=== PATIENT | female | born 1960 | race Caucasian/White ===

== ENCOUNTER 2018-05-24 11:14 | Emergency (ER) | payer MEDICARE, OTHER ==
[~2018-05-24] VITALS: Ht 172.7 cm; Wt 154.2 kg
[2018-05-24] MEDS ORDERED: IV NORMAL SALINE 1,000ML 1,000 ML IV ONE ×2 (11:45→12:45)
[2018-05-24] MEDS ORDERED: IOHEXOL 300 MG/ML 75 ML VIAL. IV ONE (12:00)
[2018-05-24] MEDS ORDERED: VANCOMYCIN 2 GM in IV NORMAL SALINE 500ML 500 ML IV ONE (12:00)
[2018-05-24] MEDS ORDERED: PIPERACILLIN/TAZOBACTAM 3.375 GM in IV NORMAL SALINE 50ML 50 ML IV ONE (12:00)
--- NOTE | 2018-05-24 12:06 | ED.ADGEN ---
Past History Past Medical History: Fibromyalgia, Hypertension, Sciatica Past Surgical History: No Surgical History Alcohol Use: None Drug Use: None Adult General Chief Complaint Chief Complaint facial pain HPI HPI 57-year-old female presents the emergency department with right-sided facial pain, swelling and redness started 2 weeks ago. Has slowly worsened. She also admits to blistering around her lips. Over the past few days she has had malaise , fatigue, insomnia and chills. Review of Systems Review of Systems Eyes: Denies change in visual acuity, redness, or eye pain HENT: Denies nasal congestion or sore throat Respiratory: Denies cough or shortness of breath Cardiovascular: No additional information not addressed in HPI GI: Denies abdominal pain, nausea, vomiting, bloody stools or diarrhea : Denies dysuria or hematuria Musculoskeletal: Denies back pain or joint pain Neurologic: Admits to mild headache, denies focal weakness or sensory changes [] Endocrine: Denies polyuria or polydipsia All other systems were reviewed and found to be within normal limits, except as documented in this note. Family History Family History noncontributory Current Medications Current Medications Current Medications Medications (Trade) Dose Ordered Sig/Mel Start Time Stop Time Status Last Admin Dose Admin Fentanyl Citrate (Fentanyl 2ml Vial) 50 mcg 1X ONCE 05/24/18 13:50 05/24/18 13:51 DC 05/24/18 14:05 50 MCG Iohexol (Omnipaque 300 Mg/ml) 75 ml 1X ONCE 05/24/18 12:00 05/24/18 12:01 DC 05/24/18 12:02 75 ML Lactated Ringer's 1,000 ml @ 1,000 mls/hr Q1H 05/24/18 13:00 05/24/18 13:00 1,000 MLS/HR Metronidazole 100 ml @ 100 mls/hr 1X ONCE 05/24/18 12:45 05/24/18 13:44 DC 05/24/18 12:45 100 MLS/HR Piperacillin Sod/ Tazobactam Sod (Zosyn) 3.375 gm STK-MED ONCE 05/24/18 12:08 05/24/18 12:09 DC Piperacillin Sod/ Tazobactam Sod 3.375 gm/Sodium Chloride 50 ml @ 100 mls/hr 1X ONCE 05/24/18 12:00 05/24/18 12:29 DC 05/24/18 12:17 100 MLS/HR Sodium Chloride 1,000 ml @ 1,000 mls/hr 1X ONCE 05/24/18 12:45 05/24/18 13:44 DC Vancomycin HCl 2 gm/Sodium Chloride 500 ml @ 250 mls/hr 1X ONCE 05/24/18 12:00 05/24/18 13:59 DC 05/24/18 12:18 250 MLS/HR Allergies Allergies Allergies Coded Allergies Type Severity Reaction Last Updated Verified No Known Drug Allergies 05/24/18 No Physical Exam Physical Exam GENERAL: Awake, alert, nontoxic, obese HEAD/NECK/EYES: Normocephalic, neck is supple, trachea midline, no JVD, right submandibular and facial cellulitis, indurated in the submandibular region, no fluctuance appreciated, no trismus, tongue not elevated, uvula midline, airway patent, no preseptal involvement, blistering around the mouth ENT Airway patent, mucous membranes moist RESP: Nontachypneic, no respiratory distress, normal breath sounds bilaterally CV: Tachycardic, no murmur ABD/GI: Soft, non-tender, no guarding BACK: Inspection NL EXT: Neurovascularly intact, no deformities SKIN: Warm, dry NEURO: Oriented X3, normal speech, no motor deficits, no sensory deficits, CN II - XII intact PSYCH: Cooperative, appropriate affect Current Patient Data Vital Signs Vital Signs Date Time Temp Pulse Resp B/P (MAP) Pulse Ox O2 Delivery O2 Flow Rate FiO2 05/24/18 14:05 22 94 Room Air 05/24/18 12:58 114 154/99 (117) 05/24/18 11:33 98.4 Lab Results Laboratory Tests Test 05/24/18 11:51 05/24/18 12:25 White Blood Count 14.3 x10^3/uL (4.0-11.0) H Red Blood Count 4.68 x10^6/uL (3.50-5.40) Hemoglobin 14.1 g/dL (12.0-15.5) Hematocrit 40.6 % (36.0-47.0) Mean Corpuscular Volume 87 fL (79-100) Mean Corpuscular Hemoglobin 30 pg (25-35) Mean Corpuscular Hemoglobin Concent 35 g/dL (31-37) Red Cell Distribution Width 13.2 % (11.5-14.5) Platelet Count 142 x10^3/uL (140-400) Neutrophils (%) (Auto) 83 % (31-73) H Lymphocytes (%) (Auto) 7 % (24-48) L Monocytes (%) (Auto) 10 % (0-9) H Eosinophils (%) (Auto) 0 % (0-3) Basophils (%) (Auto) 0 % (0-3) Neutrophils # (Auto) 11.9 x10^3uL (1.8-7.7) H Lymphocytes # (Auto) 1.0 x10^3/uL (1.0-4.8) Monocytes # (Auto) 1.4 x10^3/uL (0.0-1.1) H Eosinophils # (Auto) 0.0 x10^3/uL (0.0-0.7) Basophils # (Auto) 0.1 x10^3/uL (0.0-0.2) Segmented Neutrophils % 81 % (35-66) H Band Neutrophils % 1 % (0-9) Lymphocytes % 7 % (24-48) L Monocytes % 8 % (0-10) Nucleated Red Blood Cells 1 Dohle Bodies Present Platelet Estimate Adequate (ADEQUATE) Polychromasia Slight Sodium Level 132 mmol/L (136-145) L Potassium Level 3.3 mmol/L (3.5-5.1) L Chloride Level 94 mmol/L (98-107) L Carbon Dioxide Level 33 mmol/L (21-32) H Anion Gap 5 (6-14) L Blood Urea Nitrogen 9 mg/dL (7-20) Creatinine 0.7 mg/dL (0.6-1.0) Estimated GFR (Cockcroft-Gault) 85.9 BUN/Creatinine Ratio 13 (6-20) Glucose Level 125 mg/dL (70-99) H Lactic Acid Level 1.6 mmol/L (0.4-2.0) Calcium Level 9.0 mg/dL (8.5-10.1) Total Bilirubin 1.6 mg/dL (0.2-1.0) H Aspartate Amino Transferase (AST) 17 U/L (15-37) Alanine Aminotransferase (ALT) 29 U/L (14-59) Alkaline Phosphatase 159 U/L (46-116) H Total Protein 6.6 g/dL (6.4-8.2) Albumin 2.5 g/dL (3.4-5.0) L Albumin/Globulin Ratio 0.6 (1.0-1.7) L Urine Collection Type Unknown Urine Color Char Urine Clarity Hazy Urine pH 7.5 Urine Specific [place] 1.020 Urine Protein 100 mg/dl (NEG-TRACE) Urine Glucose (UA) Neg mg/dL (NEG) Urine Ketones (Stick) >=160 mg/dL (NEG) Urine Blood Small (NEG) Urine Nitrite Neg (NEG) Urine Bilirubin Neg (NEG) Urine Urobilinogen Dipstick 8 mg/dL (0.2 mg/dL) Urine Leukocyte Esterase Neg (NEG) Urine RBC Rare /HPF (0-2) Urine WBC 0 /HPF (0-4) Urine Squamous Epithelial Cells Few /LPF Urine Bacteria Few /HPF (0-FEW) Urine Mucus Slight /LPF EKG EKG [] Radiology/Procedures Radiology/Procedures Examination: CT MAXILLOFACIAL W/CONTRAST History: RIGHT SIDE MANDIBULAR SWELLING DOWN INTO NECK, REDNESS X 2 WEEKS Comparison/Correlation: None Findings: Axial images of the maxillofacial structures were obtained following Omnipaque 300 IV. Sagittal and coronal reformatted images were provided. Globes and optic nerves are unremarkable. Visualized paranasal sinuses are unremarkable. The patient is partially edentulous. There is right-sided mid to lower facial soft tissue edema in the subcutaneous region. Edema of the right submandibular gland is present. Gas is noted anterior to the right submandibular gland and inferior to the right side of the mandible. Soft tissue gas extends along the medial aspect of the right mandible this ill-defined edematous process with gas is subjacent to the right upper platysma. This process measures 4.2 cm in anteroposterior by 2.5 cm transverse by 3.1 cm longitudinal. No well-demarcated drainable fluid collection. Left side of the face is unremarkable. Impression: Ill-defined edematous and gaseous process subjacent to the right mandibular ramus and adjacent to as well as involving the right submandibular gland. Findings are compatible with necrotizing fasciitis. Discussed with Dr. Alcaraz of the emergency Department at [facility] on 05/24/2018 at 12:28 PM. Electronically signed by: Wilbert Peters MD (05/24/2018 12:29 PM) [facility] DICTATED AND SIGNED BY: WILBERT PETERS MD DATE: 05/24/18 1214 Course & Med Decision Making Course & Med Decision Making Pertinent Labs and Imaging studies reviewed. (See chart for details) 12:30pm- Initiating transfer to [facility] 1:15pm- Have not heard back from [facility]. Clinical course well controlled. Still tachycardic. Has gotten vanc and zosyn, flagyl hanging. Continuing IVF bolus 1:58pm- Patient has been accepted for transfer to [facility], Dr. Estrada has accepted. Final Impression Final Impression Facial necrotizing fasciitis Dragon Disclaimer Dragon Disclaimer This electronic medical record was generated, in whole or in part, using a voice recognition dictation system. Critical Care Note Total Time (mins): 38 Comments Critical care time was 35 minutes exclusive of procedures. This time included documentation in the record, communication with other physicians, medical decision making, time at bedside, time reviewing tests and imaging and talking with family and EMS. ESPERANZA ALCARAZ DO May 24, 2018 12:06
[2018-05-24 12:07] LABS: BASO # 0.1 x10^3/uL (0.0-0.2); BASO % 0 % (0-3); EOS % 0 % (0-3); HEMATOCRIT 40.6 % (36.0-47.0); HEMOGLOBIN 14.1 g/dL (12.0-15.5); LYMPH % 7 % (24-48); MEAN CORPUSCULAR HEMOGLOBIN 30 pg (25-35); MEAN CORPUSCULAR HGB CONC 35 g/dL (31-37); MEAN CORPUSCULAR VOLUME 87 fL (79-100); MONO # 1.4 x10^3/uL (0.0-1.1); MONO % 10 % (0-9); NEUT # 11.9 x10^3uL (1.8-7.7); NEUT % 83 % (31-73); PLATELET COUNT 142 x10^3/uL (140-400); RED BLOOD COUNT 4.68 x10^6/uL (3.50-5.40); RED CELL DISTRIBUTION WIDTH 13.2 % (11.5-14.5); WHITE BLOOD COUNT 14.3 x10^3/uL (4.0-11.0)
[2018-05-24] MEDS ORDERED: PIPERACILLIN/TAZOBACTAM 3.375 GM VIAL IV ONE (12:08)
[2018-05-24] MEDS ORDERED: IV NORMAL SALINE 50ML 50 ML ONE (12:08)
[2018-05-24 12:23] LABS: ALBUMIN 2.5 g/dL (3.4-5.0); ALBUMIN/GLOBULIN RATIO 0.6 (1.0-1.7); CREATININE 0.7 mg/dL (0.6-1.0); GFR 85.9; POTASSIUM 3.3 mmol/L (3.5-5.1); TOTAL BILIRUBIN 1.6 mg/dL (0.2-1.0); TOTAL PROTEIN 6.6 g/dL (6.4-8.2)
--- NOTE | 2018-05-24 12:32 | RAD ---
Examination: CT MAXILLOFACIAL W/CONTRAST History: RIGHT SIDE MANDIBULAR SWELLING DOWN INTO NECK, REDNESS X 2 WEEKS Comparison/Correlation: None Findings: Axial images of the maxillofacial structures were obtained following Omnipaque 300 IV. Sagittal and coronal reformatted images were provided. Globes and optic nerves are unremarkable. Visualized paranasal sinuses are unremarkable. The patient is partially edentulous. There is right-sided mid to lower facial soft tissue edema in the subcutaneous region. Edema of the right submandibular gland is present. Gas is noted anterior to the right submandibular gland and inferior to the right side of the mandible. Soft tissue gas extends along the medial aspect of the right mandible this ill-defined edematous process with gas is subjacent to the right upper platysma. This process measures 4.2 cm in anteroposterior by 2.5 cm transverse by 3.1 cm longitudinal. No well-demarcated drainable fluid collection. Left side of the face is unremarkable. Impression: Ill-defined edematous and gaseous process subjacent to the right mandibular ramus and adjacent to as well as involving the right submandibular gland. Findings are compatible with necrotizing fasciitis. Discussed with Dr. Alcaraz of the emergency Department at [facility] on 05/24/2018 at 12:28 PM. Electronically signed by: Wilbert Causey MD (05/24/2018 12:29 PM) [facility]
[2018-05-24 12:46] LABS: BILIRUBIN,URINE NEG (NEG); CLARITY,URINE HAZY; COLOR,URINE AMBER; GLUCOSE,URINE NEG (NEG)
[2018-05-24 12:47] LABS: BACTERIA,URINE FEW /HPF (0-FEW); NITRITE,URINE NEG (NEG); RBC,URINE RARE /HPF (0-2); SQUAMOUS EPITHELIAL CELL,UR FEW /LPF; UROBILINOGEN,URINE 8 mg/dL (0.2 mg/dL); WBC,URINE 0 /HPF (0-4)
[2018-05-24 12:53] LABS: % BANDS 1 % (0-9); % LYMPHS 7 % (24-48); % MONOS 8 % (0-10); % SEGS 81 % (35-66); NUCLEATED RBC 1; PLT ESTIMATE ADEQUATE (ADEQUATE); POLYCHROMASIA SLIGHT
[2018-05-24] MEDS ORDERED: IV RINGERS SOLUTION,LACTATED 1,000 ML IV SCH (13:00)
[2018-05-24 16:07] VITALS: BP 187/98
== END 2018-05-24 17:50 | disposition short-term general hospital (02) ==
LOC: ER 11:14
DX: M72.6 Necrotizing fasciitis (principal); M79.7 Fibromyalgia; I10 Essential (primary) hypertension
CPT/HCPCS: 36415; 70487; 80053; 81001; 83605; 85007; 85025; 87040; 96361; 96365; 96375; 96376; 99285; J2543; J3010; J3370; J3490; J7040; J7120; Q9967; J7030

== ENCOUNTER 2021-09-28 13:38 | Emergency (ER) | payer MEDICARE ==
[~2021-09-28] VITALS: Ht 160 cm; Wt 184.0 kg
--- NOTE | 2021-09-28 13:50 | PHYS DOC ---
Past History Past Medical History: Fibromyalgia, Hypertension, Sciatica Past Surgical History: No Surgical History Alcohol Use: None Drug Use: None General Adult EDM: Chief Complaint: SHORTNESS OF BREATH HPI: HPI: 60-year-old female presents with shortness of breath. The patient was diagnosed Covid positive about 2 weeks ago. She was more short of breath today so her called an ambulance. She was found to be in the 70s on room air. She is required 15 L nonrebreather to get above 90%. Patient was not vaccinated. Review of Systems: Review of Systems: Constitutional: Denies fever or chills Eyes: Denies change in visual acuity HENT: Denies nasal congestion or sore throat Respiratory: shortness of breath Cardiovascular: Denies chest pain or edema GI: Denies abdominal pain, nausea, vomiting, bloody stools or diarrhea : Denies dysuria Musculoskeletal: Denies back pain or joint pain Integument: Denies rash Neurologic: Denies headache, focal weakness or sensory changes Endocrine: Denies polyuria or polydipsia Lymphatic: Denies swollen glands Psychiatric: Denies depression or anxiety Current Medications: Current Meds: Current Medications Medications (Trade) Dose Ordered Sig/Mel Start Time Stop Time Status Last Admin Dose Admin Iohexol (Omnipaque 350 Mg/ml) 100 ml 1X ONCE 09/28/21 14:00 09/28/21 14:01 UNV Allergies: Allergies: Allergies Coded Allergies Type Severity Reaction Last Updated Verified No Known Drug Allergies 05/24/18 No Physical Exam: PE: Constitutional: Well developed, well nourished, morbidly obese, no acute distress, non-toxic appearance. [] HENT: Normocephalic, atraumatic, bilateral external ears normal, oropharynx moist, no oral exudates, nose normal. [] Eyes: PERRLA, EOMI, conjunctiva normal, no discharge. [] Neck: Normal range of motion, no tenderness, supple, no stridor. [] Cardiovascular: 103, Heart rate regular rhythm, no murmur [] Lungs & Thorax: Bilateral breath sounds diminished [] Abdomen: Bowel sounds normal, soft, no tenderness, no masses, no pulsatile masses. [] Skin: Warm, dry and peeling, no erythema, no rash. [] Back: No tenderness, no CVA tenderness. [] Extremities: No tenderness, no cyanosis, no clubbing, ROM intact, no edema. [] Neurologic: Alert and oriented X 3, normal motor function, normal sensory function, no focal deficits noted. [] Psychologic: Affect normal, judgement normal, mood normal. [] EKG: EKG: [] Radiology/Procedures: Radiology/Procedures: [] Impressions: EXAMINATION: CTA CHEST CLINICAL HISTORY: COVID+, shortness of breath. Technique: Spiral CT acquisition of the chest from the thoracic inlet to the upper abdomen following IV contrast with coronal and sagittal reformatted images also provided for review. 3D maximum intensity projection images also performed. Artificial intelligence software analysis also performed utilizing [employer]. CT Dose Reduction Employed: One or more of the following individualized dose reduction techniques were utilized for this examination: 1. Automated exposure control 2. Adjustment of the mA and/or kV according to patient size 3. Use of iterative reconstruction technique. COMPARISON: None FINDINGS: Evaluation limited by respiratory motion. Pulmonary Vasculature: No evidence of main, lobar, or or definite proximal segmental pulmonary arterial thrombus. Lung Parenchyma, Pleura, and Airways: Peripherally predominant bilateral multifocal patchy opacities and groundglass. No pleural effusion. Central airways patent with mild bronchiectasis in the medial left lung base. Lower Neck, Lymph Nodes, and Mediastinum: Visualized thyroid gland within normal limits. Multiple prominent mediastinal lymph nodes, likely reactive. Heart, Pericardium, and Thoracic Vessels: Cardiac chambers normal in size. No pericardial effusion. Thoracic aorta within normal limits. No coronary artery atherosclerotic calcifications are noted, although the study is not optimized for coronary assessment. Bones and Soft Tissues: Mild levoconvex curvature and multilevel degenerative changes in the thoracolumbar spine. Upper Abdomen: Partially visualized upper abdomen unremarkable. IMPRESSION: No evidence of main, lobar, or or definite proximal segmental pulmonary embolism on limited evaluation. Bilateral multifocal patchy airspace disease, compatible with pneumonia. Electronically signed by: Garett Green DO (09/28/2021 2:32 PM) [facility] DI[facility]ATED AND SIGNED BY: GARETT GREEN DO DATE: 09/28/21 1424 CC: BERTHA VALENTIN DO; ROMINA ANTONIO ~MTH0 0 Heart Score: C/O Chest Pain: N/A Risk Factors: Risk Factors: DM, Current or recent (<one month) smoker, HTN, HLP, family history of CAD, obesity. Risk Scores: Score 0 - 3: 2.5% MACE over next 6 weeks - Discharge Home Score 4 - 6: 20.3% MACE over next 6 weeks - Admit for Clinical Observation Score 7 - 10: 72.7% MACE over next 6 weeks - Early Invasive Strategies Course & Med Decision Making: Course & Med Decision Making Pertinent Labs and Imaging studies reviewed. (See chart for details) The patient does not have a pulmonary embolus. Procedure details: Bilateral pneumonia that is consistent with COVID-19. I will treat her with Rocephin and azithromycin and Decadron. Venous blood gas pH 7.46, CO2 55.9, O2 62. We will place her on BiPAP. We cannot admit patients on BiPAP to this facility. We will transfer her to an appropriate facility. I have talked with the hospitalist at [facility], Dr. Alcantara and he has accepted the patient for transfer. She will go by ambulance. [] Dragon Disclaimer: Dragon Disclaimer: This electronic medical record was generated, in whole or in part, using a voice recognition dictation system. Departure Departure: Impression: Primary Impression: Pneumonia due to COVID-19 virus Additional Impression: Elevated troponin Disposition: 02 SHORT TERM HOSPITAL Condition: GUARDED Referrals: ROMINA ANTONIO (PCP) BERTHA VALENTIN DO Sep 28, 2021 13:50
[2021-09-28] MEDS ORDERED: IOHEXOL 350 MG/ML 100 ML VIAL. IV ONE (14:00)
[2021-09-28] MEDS ORDERED: DEXAMETHASONE SOD PHOS 10 MG/ML VIAL. IVP ONE (14:30)
--- NOTE | 2021-09-28 14:35 | RAD ---
EXAMINATION: CTA CHEST CLINICAL HISTORY: COVID+, shortness of breath. Technique: Spiral CT acquisition of the chest from the thoracic inlet to the upper abdomen following IV contrast with coronal and sagittal reformatted images also provided for review. 3D maximum intensi ty projection images also performed. Artificial intelligence software analysis also performed rikki Najera. CT Dose Reduction Employed: One or more of the following individualized dose reduction techniques wer e utilized for this examination: 1. Automated exposure control 2. Adjustment of the mA and/or kV ac cording to patient size 3. Use of iterative reconstruction technique. COMPARISON: None FINDINGS: Evaluation limited by respiratory motion. Pulmonary Vasculature: No evidence of main, lobar, or or definite proximal segmental pulmonary arteri al thrombus. Lung Parenchyma, Pleura, and Airways: Peripherally predominant bilateral multifocal patchy opacities and groundglass. No pleural effusion. Central airways patent with mild bronchiectasis in the medial l eft lung base. Lower Neck, Lymph Nodes, and Mediastinum: Visualized thyroid gland within normal limits. Multiple pro minent mediastinal lymph nodes, likely reactive. Heart, Pericardium, and Thoracic Vessels: Cardiac chambers normal in size. No pericardial effusion. T horacic aorta within normal limits. No coronary artery atherosclerotic calcifications are noted, alth ough the study is not optimized for coronary assessment. Bones and Soft Tissues: Mild levoconvex curvature and multilevel degenerative changes in the thoracol umbar spine. Upper Abdomen: Partially visualized upper abdomen unremarkable. IMPRESSION: No evidence of main, lobar, or or definite proximal segmental pulmonary embolism on limited evaluatio n. Bilateral multifocal patchy airspace disease, compatible with pneumonia. Electronically signed by: Garett Valentine DO (09/28/2021 2:32 PM) [facility]
[2021-09-28 14:45] LABS: BASO % 0 % (0-3); EOS % 0 % (0-3); HEMATOCRIT 43.3 % (36.0-47.0); HEMOGLOBIN 14.6 g/dL (12.0-15.5); LYMPH # 0.8 x10^3/uL (1.0-4.8); LYMPH % 16 % (24-48); MEAN CORPUSCULAR HEMOGLOBIN 30 pg (25-35); MEAN CORPUSCULAR HGB CONC 34 g/dL (31-37); MEAN CORPUSCULAR VOLUME 89 fL (79-100); MONO # 0.6 x10^3/uL (0.0-1.1); MONO % 12 % (0-9); NEUT # 3.8 x10^3uL (1.8-7.7); NEUT % 73 % (31-73); PLATELET COUNT 161 x10^3/uL (140-400); RED BLOOD COUNT 4.88 x10^6/uL (3.50-5.40); RED CELL DISTRIBUTION WIDTH 14.4 % (11.5-14.5); WHITE BLOOD COUNT 5.2 x10^3/uL (4.0-11.0)
[2021-09-28] MEDS ORDERED: ENOXAPARIN ** NOTE DOSE ** SYRINGE SQ ONE (14:45)
[2021-09-28] MEDS ORDERED: AZITHROMYCIN 250 MG TABLET. PO ONE (14:45)
[2021-09-28] MEDS ORDERED: IV NORMAL SALINE 50ML 50 ML ONE (14:51)
[2021-09-28] MEDS ORDERED: cefTRIAXone SODIUM 1 GM VIAL ONE (14:52)
--- NOTE | 2021-09-28 15:00 | EKG ---
[address] [address] Test Date: 2021-09-28 Test Time: 14:04:35 Pat Name: FELA VELASQUEZ Department: Room: Gender: F [employer]: : 1960 Requested By: BERTHA VALENTIN Order Number: [id number] Reading MD: Fausto Lafleur Measurements Intervals [place] Rate: 99 P: 59 ID: [id number] QRS: 34 QRSD: 90 T: 14 QT: 376 QTc: 488 Interpretive Statements SINUS RHYTHM LEFT ATRIAL ABNORMALITY NON SPECIFIC ST-T WAVE CHANGES Electronically Signed On 09-29-2021 13:59:32 BOTTLE GAUGER by Fausto Lafleur
[2021-09-28 15:03] LABS: CREATININE 0.9 mg/dL (0.6-1.0); GFR 63.7; POTASSIUM 3.9 mmol/L (3.5-5.1)
[2021-09-28 15:09] LABS: ALBUMIN 2.2 g/dL (3.4-5.0); ALBUMIN/GLOBULIN RATIO 0.6 (1.0-1.7); TOTAL BILIRUBIN 0.5 mg/dL (0.2-1.0); TOTAL PROTEIN 5.8 g/dL (6.4-8.2)
[2021-09-28 16:27] VITALS: BP 133/61
== END 2021-09-28 16:55 | disposition short-term general hospital (02) ==
LOC: ER 13:38
DX: U07.1 COVID-19 (principal); J12.89 Other viral pneumonia; R77.8 Other specified abnormalities of plasma proteins; M79.7 Fibromyalgia; I10 Essential (primary) hypertension
CPT/HCPCS: 36415; 71275; 80053; 82803; 83605; 84484; 85025; 87040; 93005; 94660; 96365; 96372; 96375; 99285; J0696; J1100; J1650; Q9967; 99284